=== PATIENT | female | born 1980 | race Asian ===

== ENCOUNTER 2021-11-15 06:14 | Emergency (ER) | payer BC, OTHER ==
[~2021-11-15] VITALS: Ht 149.9 cm; Wt 56.0 kg
[2021-11-15 06:14] VITALS: BP 143/111
[2021-11-15] MEDS ORDERED: LIDOCAINE 2%HCL (LOCAL ANESTH.) INJ 20ML MDV ONE (07:45)
[2021-11-15] MEDS ORDERED: cefTRIAXone SOD 1,000 MG VL IM ONE (07:45)
[2021-11-15] MEDS ORDERED: IPRATROPIUM BROM 0.5 MG/2.5ML INH SOL NEB ONE (07:45)
[2021-11-15] MEDS ORDERED: ALBUTEROL SULF 2.5 MG/0.5ML(0.5%) NEB SOLN NEB ONE (07:45)
[2021-11-15] MEDS ORDERED: METH4PAK PO (08:09)
[2021-11-15] MEDS ORDERED: BENZ100C19 PO (08:09)
== END 2021-11-15 08:15 | disposition home or self-care (01) ==
LOC: ER 06:14
DX: J03.90 Acute tonsillitis, unspecified (principal); J20.9 Acute bronchitis, unspecified
CPT/HCPCS: 71045; 96372; 99283; J0696; J7644

== ENCOUNTER 2022-10-06 20:06 | Emergency (ER) | payer BC ==
[~2022-10-06] VITALS: Ht 180.3 cm; Wt 128.0 kg
[~2022-10-06 20:06] MED LIST: BENZ100C19 PO; METH4PAK PO
[2022-10-06] MEDS ORDERED: DexAMETHasone SOD PHOS 10MG/1ML VIAL INJ IV ONE (20:15)
[2022-10-06] MEDS ORDERED: IPRATROPIUM BROM 0.5 MG/2.5ML INH SOL NEB ONE (20:15)
[2022-10-06] MEDS ORDERED: diphenhdrAMINE HCL 50 MG/1 ML VL IV ONE (20:15)
[2022-10-06] MEDS ORDERED: ALBUTEROL SULF 2.5 MG/0.5ML(0.5%) NEB SOLN NEB ONE (20:15)
[2022-10-06] MEDS ORDERED: IOHEXOL 350 MG/ML 100ML IJ ONE (20:24)
[2022-10-06] MEDS ORDERED: LORazepam 2MG/ML-1ML VIAL IV ONE (20:45)
[2022-10-06 20:55] LABS: Basophils # (auto) 0 10 ^3/uL (0-0.2); Basophils % (auto) 0.3 % (0.0-2.0); Eosinophils # (auto) 0.7 10 ^3/uL (0-0.8); Hematocrit 35.5 % (36.0-46.0); Hemoglobin 11.6 g/dL (12.2-16.2); Lymphocytes # (auto) 3.4 10 ^3/uL (0.4-5.4); Lymphocytes % (auto) 37.4 % (10.0-50.0); Mean Corpuscular Hemoglobin 28.8 pg (28.0-32.0); Mean Corpuscular Hgb Conc. 32.8 g/dL (32.0-36.0); Monocytes # (auto) 0.6 10 ^3/uL (0-1.3); Monocytes % (auto) 6.2 % (0.0-12.0); Neutrophils # (auto) 4.4 10 ^3/uL (1.6-8.6); Neutrophils % (auto) 48.1 % (37.0-80.0); Nucleated Red Blood Cells % 0.1 %; Red Blood Cells 4.03 10^6/uL (4.0-5.20); Red Cell Distribution Width 13.9 % (11.8-14.3); White Blood Cell 9.2 10^3/uL (4.4-10.8)
[2022-10-06 21:11] LABS: INR 0.93 (0.9-1.15); Partial Thromboplastin Time 28.3 SEC (24.5-34.5)
[2022-10-06 21:13] LABS: Albumin 3.5 g/dL (3.4-5.0); Calcium 8.5 mg/dL (8.5-10.1); Magnesium 2.4 mg/dL (1.6-2.6); Potassium 3.9 mmol/L (3.5-5.1)
[2022-10-06 21:16] LABS: BUN/Creatinine Ratio 11.3 (10.0-20.0); Bilirubin, Total 0.3 mg/dL (0.2-1.0); Total Protein 7.4 g/dL (6.4-8.2)
[2022-10-06 22:37] VITALS: BP 109/60
== END 2022-10-06 22:42 | disposition home or self-care (01) ==
LOC: ER 20:06
DX: R07.89 Other chest pain (principal); F41.9 Anxiety disorder, unspecified; E78.5 Hyperlipidemia, unspecified
CPT/HCPCS: 36415; 71045; 71275; 80053; 83735; 83880; 84484; 85025; 85610; 85730; 93005; 94640; 96374; 96375; 99285; J1100; J2060; J7644; Q9967

== ENCOUNTER 2022-10-31 12:05 | Emergency (ER) | payer BC ==
[~2022-10-31] VITALS: Ht 149.9 cm; Wt 58.0 kg
[2022-10-31 12:49] LABS: Basophils # (auto) 0 10 ^3/uL (0-0.2); Basophils % (auto) 0.4 % (0.0-2.0); Eosinophils # (auto) 0.4 10 ^3/uL (0-0.8); Eosinophils % (auto) 4.7 % (0.0-7.0); Hematocrit 36.4 % (36.0-46.0); Lymphocytes # (auto) 2.4 10 ^3/uL (0.4-5.4); Lymphocytes % (auto) 28.8 % (10.0-50.0); Mean Corpuscular Hemoglobin 29.2 pg (28.0-32.0); Mean Corpuscular Volume 88.5 fL (80.0-100.0); Monocytes # (auto) 0.5 10 ^3/uL (0-1.3); Monocytes % (auto) 5.6 % (0.0-12.0); Neutrophils # (auto) 5.1 10 ^3/uL (1.6-8.6); Neutrophils % (auto) 60.5 % (37.0-80.0); Red Blood Cells 4.12 10^6/uL (4.0-5.20); Red Cell Distribution Width 13.8 % (11.8-14.3); White Blood Cell 8.5 10^3/uL (4.4-10.8)
[2022-10-31 12:53] LABS: Urine Bacteria NONE SEEN /hpf (None Seen); Urine Blood Negative /uL (Negative); Urine Specific Gravity 1.002 (1.001-1.035); Urine WBC <1 /hpf (0 - 5)
[2022-10-31 13:07] LABS: Albumin 3.7 g/dL (3.4-5.0); Calcium 8.6 mg/dL (8.5-10.1); Magnesium 2.4 mg/dL (1.6-2.6); Potassium 3.5 mmol/L (3.5-5.1)
[2022-10-31 13:12] LABS: BUN/Creatinine Ratio 13.2 (10.0-20.0); Bilirubin, Total 0.3 mg/dL (0.2-1.0); Total Protein 7.2 g/dL (6.4-8.2)
[2022-10-31] MEDS ORDERED: AZIT1POW PO (14:51)
[2022-10-31 15:05] VITALS: BP 132/86; PULSE 84; RESP 18; TEMP 98; O2SAT 98
== END 2022-10-31 15:21 | disposition home or self-care (01) ==
LOC: ER 12:05
DX: J01.90 Acute sinusitis, unspecified (principal); F41.9 Anxiety disorder, unspecified; E78.5 Hyperlipidemia, unspecified; R10.2 Pelvic and perineal pain; Z79.899 Other long term (current) drug therapy; Z86.73 Personal history of transient ischemic attack (TIA), and cerebral infarction without residual deficits; Z98.890 Other specified postprocedural states
CPT/HCPCS: 36415; 70450; 80053; 81001; 83735; 84484; 84702; 85025; 93005

== ENCOUNTER → 2022-12-17 | Outpatient (CLI) | payer BC ==
[~2022-12-17] MED LIST changes: +AZIT1POW PO; +IOHEXOL 350 MG/ML 100ML IJ ONE
[2022-12-17 14:11] VITALS: BP 129/76; PULSE 77; RESP 16; O2SAT 100
[2022-12-17 14:28] VITALS: BP 127/78; PULSE 77; RESP 16; O2SAT 99
== END | disposition home or self-care (01) ==
LOC: Rad HDHVI 13:26
PROVIDERS: ATTEND Internal Medicine Cardiovascular Disease
DX: R06.02 Shortness of breath (principal); R07.89 Other chest pain; R06.01 Orthopnea
CPT/HCPCS: 71275; 93306; G0463; Q9967